=== PATIENT | female | born 1940 | race Caucasian/White ===

== ENCOUNTER 2019-02-27 10:35 | Emergency (ER) | payer MEDICARE ==
[~2019-02-27] VITALS: Ht 157.5 cm; Wt 59.8 kg
[2019-02-27] MEDS ORDERED: LEVO75TA34 PO ×2 (10:54→13:40)
[2019-02-27 11:20] LABS: BASO % 0.2 % (0.0-1.0); EOS % 0.6 % (0.0-3.0); HEMATOCRIT 36.2 % (36.0-47.0); HEMOGLOBIN 11.8 g/dl (12.0-15.5); LYMPH # 1.3 10^3/uL (1.5-5.0); LYMPH % 27.1 % (24.0-44.0); MEAN CORPUSCULAR HEMOGLOBIN 30.5 pg (27.0-33.0); MEAN CORPUSCULAR HGB CONC 32.6 g/dl (32.0-36.5); MEAN CORPUSCULAR VOLUME 93.5 fl (80.0-96.0); MONO # 0.4 10^3/uL (0.0-0.8); MONO % 8.1 % (0.0-5.0); NEUTROPHILS % 63.8 % (36.0-66.0); PLATELET COUNT, AUTOMATED 241 10^3/uL (150-450); RED BLOOD COUNT 3.87 10^6/uL (4.00-5.40); WHITE BLOOD COUNT 4.7 10^3/uL (4.0-10.0)
[2019-02-27 11:44] LABS: BLOOD UREA NITROGEN 25 MG/DL (7-18); CALCIUM LEVEL 9.3 MG/DL (8.8-10.2); CARBON DIOXIDE LEVEL 29 MEQ/L (21-32); CHLORIDE LEVEL 104 MEQ/L (98-107); CK-MB VALUE MASS 1.3 NG/ML (<3.6); CPK CREATINE PHOSPHOKINASE 128 U/L (26-192); GLUCOSE, FASTING 95 MG/DL (70-100); MB/CK RELATIVE INDEX 1.02 (< OR =4); POTASSIUM SERUM 4.5 MEQ/L (3.5-5.1); SODIUM LEVEL 141 MEQ/L (136-145); TROPONIN I < 0.02 NG/ML (< 0.10)
--- NOTE | 2019-02-27 11:58 | REP ---
CHEST, SINGLE VIEW: Single view of the chest is performed. There are no prior studies. There is no acute infiltrate. The heart is normal in size. There is calcification of the thoracic aorta. The mediastinal silhouette is otherwise unremarkable. There are degenerative changes of the spine. IMPRESSION: No acute infiltrate. Electronically Signed by Aakash Calderon MD 02/27/2019 03:59 P
--- NOTE | 2019-02-27 12:25 | REP ---
CT BRAIN WITHOUT CONTRAST: HISTORY: Dementia. No comparison brain imaging. 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 The bony calvarium is intact. Visualized paranasal sinuses are clear. There is some vascular calcification bilaterally in the distal internal carotid arteries. On soft tissue window settings, there is moderate generalized atrophy above and below the tentorium. There are small vessel atherosclerotic changes in the periventricular white matter of the frontal lobes bilaterally. There are tiny old appearing lacunar infarcts in the basal ganglia bilaterally. No acute infarction is seen. No intracranial hemorrhage is observed. No mass or midline shift is seen. IMPRESSION: Diffuse atrophy, small vessel atherosclerotic changes, tiny lacunar infarcts, one on each side in the basal ganglia. No acute intracranial abnormality. Electronically Signed by Te Barfield MD 02/27/2019 04:07 P
[2019-02-27 13:06] VITALS: BP 168/92
[2019-02-27 13:17] LABS: ALBUMIN 4.2 GM/DL (3.2-5.2); ALT/SGPT 24 U/L (12-78); BILIRUBIN,DIRECT 0.2 MG/DL (0.0-0.2); BILIRUBIN,TOTAL 0.6 MG/DL (0.2-1.0); FREE T4 1.21 NG/DL (0.76-1.46); RHEUMATOID FACTOR QUANT < 10.0 IU/ML (<15.0); TOTAL PROTEIN 7.5 GM/DL (6.4-8.2)
[2019-02-27 13:45] LABS: FOLATE 8.9 NG/ML (>5.4); VITAMIN B12 LEVEL 398 PG/ML (247-911)
--- NOTE | 2019-02-28 06:05 | ECGEPIP ---
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
[2019-03-05 11:29] LABS: ANTI DOUBLE STRAND-DNA AB 2 IU/mL (0-9); ANTINUCLEAR ANTIBODIES DIRECT Positive (Negative); RNP ANTIBODIES 1.2 AI (0.0-0.9); SJOGREN'S ANTI SS-A <0.2 AI (0.0-0.9); SJOGREN'S ANTI SS-B <0.2 AI (0.0-0.9); SMITH ANTIBODIES <0.2 AI (0.0-0.9); VITAMIN B1 LEVEL WHOLE BLOOD 101.9 nmol/L (66.5-200.0); VITAMIN E(ALPHA TOCOPHEROL) 16.8 mg/L (9.0-29.0); VITAMIN E(GAMMA TOCOPHEROL) 1.2 mg/L (0.5-4.9)
== END 2019-02-27 13:53 | disposition home or self-care (01) ==
LOC: M ED 10:35
DX: R07.89 Other chest pain (principal); F03.90 Unspecified dementia, unspecified severity, without behavioral disturbance, psychotic disturbance, mood disturbance, and anxiety; I10 Essential (primary) hypertension; F41.9 Anxiety disorder, unspecified; E03.9 Hypothyroidism, unspecified; Z79.899 Other long term (current) drug therapy; Z88.0 Allergy status to penicillin; Z88.8 Allergy status to other drugs, medicaments and biological substances; Z91.89 Other specified personal risk factors, not elsewhere classified

== ENCOUNTER → 2019-06-27 | Outpatient (REF) | payer MEDICARE ==
[~2019-06-27] MED LIST: LEVO75TA34 PO
[2019-06-27 16:45] LABS: BASO % 0.2 % (0.0-1.0); EOS % 0.4 % (0.0-3.0); HEMATOCRIT 43.7 % (36.0-47.0); HEMOGLOBIN 13.4 g/dl (12.0-15.5); LYMPH # 1.5 10^3/uL (1.5-5.0); LYMPH % 27.8 % (24.0-44.0); MEAN CORPUSCULAR HEMOGLOBIN 29.1 pg (27.0-33.0); MEAN CORPUSCULAR HGB CONC 30.7 g/dl (32.0-36.5); MONO # 0.5 10^3/uL (0.0-0.8); MONO % 9.4 % (0.0-5.0); NEUTROPHILS # 3.2 10^3/uL (1.5-8.5); PLATELET COUNT, AUTOMATED 235 10^3/uL (150-450); WHITE BLOOD COUNT 5.2 10^3/uL (4.0-10.0)
[2019-06-27 17:08] LABS: ALBUMIN 4.1 GM/DL (3.2-5.2); BILIRUBIN,TOTAL 0.4 MG/DL (0.2-1.0); CALCIUM LEVEL 9.6 MG/DL (8.8-10.2); CREATININE FOR GFR 1.2 MG/DL (0.55-1.30); FREE T4 1.21 NG/DL (0.76-1.46); POTASSIUM SERUM 4.3 MEQ/L (3.5-5.1); THYROID STIMULATING HORMONE 4.05 uIU/ML (0.358-3.740); TOTAL PROTEIN 8.1 GM/DL (6.4-8.2)
== END ==
LOC: M SFHCLERA 11:35
PROVIDERS: ATTEND Physician Assistant
DX: E03.9 Hypothyroidism, unspecified (principal)
CPT/HCPCS: 80053; 84439; 84443; 85025; G0463

== ENCOUNTER 2020-04-30 16:45 | Emergency (ER) | payer MEDICARE ==
[~2020-04-30] VITALS: Ht 160 cm; Wt 67.3 kg
[2020-04-30] MEDS ORDERED: XANA0.25 PO (16:58)
[2020-04-30] MEDS ORDERED: SERT-141 PO ×2 (16:58→19:28)
[2020-04-30 17:30] LABS: BASO % 0.6 % (0.0-1.0); EOS # 0.1 10^3/uL (0.0-0.5); EOS % 0.9 % (0.0-3.0); HEMATOCRIT 38.3 % (36.0-47.0); LYMPH # 1.7 10^3/uL (1.5-5.0); LYMPH % 31.1 % (24.0-44.0); MEAN CORPUSCULAR HEMOGLOBIN 28.8 pg (27.0-33.0); MEAN CORPUSCULAR HGB CONC 31.3 g/dl (32.0-36.5); MEAN CORPUSCULAR VOLUME 92.1 fl (80.0-96.0); MONO # 0.5 10^3/uL (0.0-0.8); MONO % 8.3 % (0.0-5.0); NEUTROPHILS # 3.2 10^3/uL (1.5-8.5); NEUTROPHILS % 58.7 % (36.0-66.0); PLATELET COUNT, AUTOMATED 218 10^3/uL (150-450); RED BLOOD COUNT 4.16 10^6/uL (4.00-5.40); WHITE BLOOD COUNT 5.4 10^3/uL (4.0-10.0)
--- NOTE | 2020-04-30 17:35 | REP ---
INDICATION: CHEST PAIN COMPARISON: 02/27/2019 TECHNIQUE: Portable AP view of the chest FINDINGS: The mediastinum and cardiac silhouette are stable and within normal limits for portable technique. The lung pruett are clear without acute consolidation, effusion, or pneumothorax. Skeletal structures are intact. IMPRESSION: No acute cardiopulmonary process appreciated. <Electronically signed by Gerald Betancourt > 04/30/20 [id number]
[2020-04-30 18:00] LABS: ALT/SGPT 19 U/L (12-78); BILIRUBIN,DIRECT 0.1 MG/DL (0.0-0.2); BILIRUBIN,TOTAL 0.4 MG/DL (0.2-1.0); BLOOD UREA NITROGEN 27 MG/DL (7-18); CALCIUM LEVEL 9.5 MG/DL (8.8-10.2); CARBON DIOXIDE LEVEL 28 MEQ/L (21-32); CHLORIDE LEVEL 102 MEQ/L (98-107); CK-MB VALUE MASS 1.3 NG/ML (<3.6); CPK CREATINE PHOSPHOKINASE 100 U/L (26-192); CREATININE FOR GFR 1.15 MG/DL (0.55-1.30); FREE T4 1.11 NG/DL (0.76-1.46); GLOMERULAR FILTRATION RATE 48.2 (>32); GLUCOSE, FASTING 102 MG/DL (70-100); LIPASE 148 U/L (73-393); POTASSIUM SERUM 4.1 MEQ/L (3.5-5.1); SODIUM LEVEL 138 MEQ/L (136-145); TOTAL PROTEIN 7.8 GM/DL (6.4-8.2); TROPONIN I < 0.02 NG/ML (< 0.10)
[2020-04-30] MEDS ORDERED: LABETALOL 100MG/20ML VIAL IV STA (18:38)
[2020-04-30 18:59] LABS: NT-PRO BNP 440 PG/ML (<450)
[2020-04-30 19:09] VITALS: BP 190/97
[2020-04-30] MEDS ORDERED: MACR100C43 PO (19:28)
[2020-04-30] MEDS ORDERED: LEVO75TA34 PO (19:28)
[2020-04-30 19:30] VITALS: BP 149/71
[2020-04-30] MEDS ORDERED: ALPRAZolam 0.25 MG TAB PO ONE (19:30)
[2020-04-30] MEDS ORDERED: NITROFURANTOIN (MACROBID) 100 MG CAP PO ONE (19:30)
--- NOTE | 2020-05-01 07:37 | ECGEPIP ---
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
== END 2020-04-30 20:03 | disposition home or self-care (01) ==
LOC: M ED 16:45
DX: N39.0 Urinary tract infection, site not specified (principal); F41.9 Anxiety disorder, unspecified; R07.89 Other chest pain; E11.9 Type 2 diabetes mellitus without complications; K58.9 Irritable bowel syndrome, unspecified; Z79.899 Other long term (current) drug therapy; Z88.0 Allergy status to penicillin; Z88.2 Allergy status to sulfonamides; Z88.8 Allergy status to other drugs, medicaments and biological substances; Z91.89 Other specified personal risk factors, not elsewhere classified